=== PATIENT | male | born 1930 | race Caucasian/White ===

== ENCOUNTER 2017-09-03 14:41 | Outpatient (CLI) | payer MEDICARE, OTHER ==
[2017-09-03 15:18] LABS: eGFR (African) > 60; eGFR (Non-African) > 60
--- NOTE | 2017-09-03 18:00 | Diagnostic Imaging Report ---
BRENDA VIVEROS [facility] [address] [facility] [address] [address] Report Submission Date: September 03, 2017 5:33:36 PM CDT Patient Study Name: PRETTY BRAR Date: September 03, 2017 2:54:13 PM CDT Modality Type: DX Gender: M Description: SHOULDER : 34 Institution: [facility] Physician: BRENDA VIVEROS Examination: Plain film left shoulder History: PAIN IN LEFT CLAVICLE X 3-4 MONTHS (Hx) Comparison exams: None provided Findings: 3 views of the left shoulder demonstrates osteopenia. No evidence for fracture or dislocation. Acromioclavicular joint degenerative changes. No soft tissue abnormality. Impression: Osteopenia and degenerative changes. No acute osseous process. Electronically signed on September 03, 2017 5:33:36 PM CDT by: Taurus MATHEW
--- NOTE | 2017-09-03 18:01 | Diagnostic Imaging Report ---
BRENDA VIVEROS [facility] [address] [facility] [address] [address] Report Submission Date: September 03, 2017 5:41:24 PM CDT Patient Study Name: PRETTY BRAR Date: September 03, 2017 2:58:06 PM CDT Modality Type: DX Gender: M Description: SHOULDER : 34 Institution: [facility] Physician: BRENDA VIVEROS Examination: Plain film left clavicle. History: PAIN IN LEFT CLAVICLE X 3-4 MONTHS (Hx) Comparison exams: None available. Findings: 2 views of the left clavicle demonstrates osteopenia. Acromioclavicular joint degenerative changes. No cortical disruption. Impression: Osteopenia and degenerative changes. No cortical abnormality. Electronically signed on September 03, 2017 5:41:24 PM CDT by: Taurus MATHEW
== END 2017-09-03 14:43 ==
LOC: LAB 14:41
PROVIDERS: ATTEND Family Medicine
DX: I10 Essential (primary) hypertension (principal); M89.8X1 Other specified disorders of bone, shoulder; M25.512 Pain in left shoulder
CPT/HCPCS: 36415; 73000; 73030; 80048

== ENCOUNTER 2017-09-25 14:20 | Outpatient (CLI) | payer OTHER | END 2017-09-25 14:21 | LOC: LAB 14:20 | PROVIDERS: ATTEND Family Medicine | DX: R73.9 Hyperglycemia, unspecified (principal) | CPT/HCPCS: 36415; 83036 ==